=== PATIENT | female | born 1955 | race Two or more races ===

== ENCOUNTER 2020-06-04 08:19 | Outpatient (CLI) | payer OTHER ==
[~2020-06-04 08:19] MED LIST: METFORMIN HYDRO25 GM MC; ORPH100T PO; SIMVASTATIN5 MG PO; SYNTHROID50 MCG PO; TORADOL15 MG IM
== END 2020-06-04 08:32 | disposition home or self-care (01) ==
LOC: TOM 08:19
PROVIDERS: ATTEND Internal Medicine
DX: K57.90 Diverticulosis of intestine, part unspecified, without perforation or abscess without bleeding (principal); Z12.11 Encounter for screening for malignant neoplasm of colon; K56.600 Partial intestinal obstruction, unspecified as to cause